=== PATIENT | male | born 1955 | race African-American/Black ===

== ENCOUNTER 2017-11-30 15:54 | Outpatient (CLI) | payer OTHER | END 2017-11-30 15:55 | disposition home or self-care (01) | LOC: LAB 15:54 | DX: R97.20 Elevated prostate specific antigen [PSA] (principal) ==

== ENCOUNTER 2018-01-12 07:12 | Outpatient (CLI) | payer OTHER | END 2018-01-12 07:27 | disposition home or self-care (01) | LOC: SONOGRAMA 07:12 | DX: R97.20 Elevated prostate specific antigen [PSA] (principal) ==